=== PATIENT | male | born 1965 ===

== ENCOUNTER 2019-04-26 08:25 | Day surgery (SDC) | payer MEDICARE ==
[2019-04-26] MEDS ORDERED: LIDOcaine/PRILOcaine 5gm cream TP ONE (09:24)
== END 2019-04-26 10:30 | disposition home or self-care (01) ==
LOC: WOUND CARE 08:25
PROVIDERS: ATTEND Surgery
DX: T81.31XA Disruption of external operation (surgical) wound, not elsewhere classified, initial encounter (principal); E11.621 Type 2 diabetes mellitus with foot ulcer; L97.512 Non-pressure chronic ulcer of other part of right foot with fat layer exposed; E11.610 Type 2 diabetes mellitus with diabetic neuropathic arthropathy; E03.9 Hypothyroidism, unspecified; I10 Essential (primary) hypertension; Y92.89 Other specified places as the place of occurrence of the external cause; Y83.8 Other surgical procedures as the cause of abnormal reaction of the patient, or of later complication, without mention of misadventure at the time of the procedure
CPT/HCPCS: 11042; 36416; 82948; 87070; 87075; 87077; 87102; 87186; 97597